=== PATIENT | male | born 1955 | race Caucasian/White ===

== ENCOUNTER 2016-10-11 12:48 | Emergency (ER) | payer OTHER ==
[2016-10-11] MEDS ORDERED: cefTRIAXone IM 1 GM VIAL IM ONE (13:15)
[2016-10-11] MEDS ORDERED: DIPHTH,PERTUSS(ACELL),TET TOX 0.5 ML DISP.SYRIN. VAX IM ONE (13:15)
[2016-10-11] MEDS ORDERED: LIDOCAINE 2%/EPI 1:100,000 20 ML VIAL. IJ ONE (13:15)
--- NOTE | 2016-10-11 13:31 | PHYS DOC ---
General Chief Complaint: LACERATION/AVULSION Stated Complaint: LEG LAC Time Seen by MD: 12:55 Source: patient Exam Limitations: no limitations Problems: History of Present Illness Initial Comments Patient is a 61-year-old male who comes to the ED complaining of right lower leg laceration. Patient states immediately prior to ED arrival he was discarding an old used toilet. He says he threw it out of the truck and it shattered on the ground. As he was getting out of the truck walking getting ready to leave the dump he accidentally scraped his medial right lower leg on a sharp piece of porcelain from the toilet causing a large laceration. He says bleeding was profuse initially with what he thought was pulsatile bleeding, he applied direct pressure by tying a towel around his leg and came straight to the ED for evaluation. No other injury, tetanus status uncertain patient's normally healthy denies immunocompromise. Pain is controlled on arrival "it just edmond a little." Other than direct pressure no pre-arrival treatment no leg weakness numbness tingling or radiating symptoms. 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[employer].) Drugs: none Review of Systems Constitutional: denies chills, denies fever Respiratory: denies cough, denies shortness of breath Cardiovascular: denies chest pain, denies palpitations Gastrointestinal: denies diarrhea, denies nausea, denies vomiting Genitourinary: denies dysuria, denies frequency Musculoskeletal: see HPI Skin: see HPI Psychiatric/Neurological: denies headache, denies numbness, denies paresthesia , denies weakness Physical Exam General Appearance: WD/WN, no apparent distress HEENT: normal ENT inspection Neck: non-tender, supple Cardiovascular/Respiratory: normal peripheral pulses, no respiratory distress Back: no CVA tenderness, no vertebral tenderness Legs: left leg non-tender, left leg normal inspection, bilateral leg normal range of motion, left leg no evidence of injury, right leg other (midshaft tibia medial aspect there is a 5 cm laceration see procedure for full description) Neurologic/Tendon: normal sensation, normal motor functions, normal tendon functions, responds to pain, no evidence tendon injury Psychiatric: alert, oriented x 3 Skin: normal color (right lower extremity laceration see procedure note) Laceration/Wound Repair Laceration/Wound Repair : Wound Location: lower extremity (mid shaft medial aspect right lower leg) Wound's Depth, Shape: superficial, linear Wound Length (cm): 5 Wound Explored: contaminated (dirt and debris noted) Irrigated w/ Saline (ccs): 250 Betadine Prep?: Yes Anesthesia: Lidocaine w/ Epi Volume Anesthetic (ccs): 6 Wound Debrided: minimal Wound Repaired With: sutures (graciela) Number of Sutures: 10 ([place]) Sterile Dressing Applied?: Yes Splint Applied?: No Progress Informed consent obtained. Analgesia with 2% lidocaine with epinephrine, upon adequate analgesia the wound was aggressively cleansed with Betadine and normal saline first by RN additionally by me. Wound was explored and extends to the muscle fascia but does not penetrate muscle. No pulsatile bleeding or bony involvement. After satisfactory cleaning 10 graciela used with good wound edge approximation. Patient tolerated procedure well no complications estimated blood loss minimal. See departure instructions for wound care and follow-up. Orders, Labs, Meds 5cm 10 graciela Patient's tetanus was updated and he received Rocephin intramuscularly. No new or progressive symptoms, patient understands risk of wound dehiscence if he begins to bear weight 2 early. Crutches provided he expressed agreement and understanding the treatment plan. Departure Time of Disposition: 14:10 Disposition: 01 HOME, SELF-CARE Diagnosis: 5cm right lower leg laceration Condition: IMPROVED Patient Instructions: Staple Wound Closure, [id number], VIS, Tetanus, Diphtheria (Td); Tetanus, Diphtheria, Pertussis (Tdap) - CDC Additional Instructions: Nonweight bearing crutches only for 7 days. Keep wound covered with sterile dressing until completely healed. Keep wound dry and change dressing twice daily. After 48 hours begin washing wound twice daily with soap and warm water, blot dry. Change dressing each wash, apply bactroban ointment once daily. Allow wound to air dry one hour daily. OTC tylenol/ibuprofen as needed. Rx: bactrim ds #14, bactroban Follow up with a doctor or return to ED in 10 days for wound check and possible staple removal. Return to ED with new or changing symptoms. JIE LAY DO Oct 11, 2016 13:31
[2016-10-11 14:41] VITALS: BP 139/95
== END 2016-10-11 14:44 | disposition home or self-care (01) ==
LOC: ER 12:48
DX: S81.811A Laceration without foreign body, right lower leg, initial encounter (principal); Z87.891 Personal history of nicotine dependence; W45.8XXA Other foreign body or object entering through skin, initial encounter; Y93.89 Activity, other specified; Y99.8 Other external cause status; Y92.89 Other specified places as the place of occurrence of the external cause
CPT/HCPCS: 12002; 90471; 90715; 96372; 99284; J0696

== ENCOUNTER 2016-10-21 08:13 | Emergency (ER) | payer OTHER ==
[~2016-10-21] VITALS: Ht 170.2 cm; Wt 86.2 kg
[2016-10-21 08:22] VITALS: BP 131/82
--- NOTE | 2016-10-21 12:26 | ED.ADGEN ---
Past History Past Medical History: No Pertinent History Past Surgical History: No Surgical History Alcohol Use: None Drug Use: None Adult General Chief Complaint Chief Complaint Encounter for staple removal [facility] Patient is a 61-year-old male presents for staple removal. Patient has graciela placed in his right leg 10 days ago and was prescribed apical on oral antibiotics which she completed 2 days ago. His completing the antibiotics, patient notes increased red rash around graciela. Rashes non-streaking without duration or drainage. Patient reports minimal pain to this region. No other symptoms or complaints. Review of Systems Review of Systems ROS as per [facility] Allergies Allergies Allergies Coded Allergies Type Severity Reaction Last Updated Verified No Known Drug Allergies 10/21/16 No Physical Exam Physical Exam Constitutional: Well developed, well nourished, no acute distress, non-toxic appearance. Extremities: Right calf, healing 6 cm horizontal laceration with minimal erythema/cellulitis just beyond margin of a post. No drainage, induration or streaking. No gaping or wound dehiscence. Neurologic: Alert and oriented X 3, normal motor function, normal sensory function, no focal deficits noted. Psychologic: Affect normal, judgement normal, mood normal. Current Patient Data Vital Signs Vital Signs Date Time Temp Pulse Resp B/P (MAP) Pulse Ox O2 Delivery O2 Flow Rate FiO2 10/21/16 08:22 97.7 81 18 97 Room Air EKG EKG [] Radiology/Procedures Radiology/Procedures [] Course & Med Decision Making Course & Med Decision Making Pertinent Labs and Imaging studies reviewed. (See chart for details) [Graciela removed, prescription for antibiotics divided. Patient struck to follow -up with PCP in 3-5 days for recheck. Return precautions reviewed..] Final Impression Final Impression [1. Encounter for staple removal 2. Wound cellulitis] Problems: Dragon Disclaimer Dragon Disclaimer This electronic medical record was generated, in whole or in part, using a voice recognition dictation system. KAYLEE SALAZAR DO Oct 21, 2016 12:26
== END 2016-10-21 08:40 | disposition home or self-care (01) ==
LOC: ER 08:13
DX: S81.811D Laceration without foreign body, right lower leg, subsequent encounter (principal); L03.115 Cellulitis of right lower limb; X58.XXXD Exposure to other specified factors, subsequent encounter; Y99.8 Other external cause status; Y92.89 Other specified places as the place of occurrence of the external cause
CPT/HCPCS: 99283